=== PATIENT | female | born 1965 | race Caucasian/White ===

== ENCOUNTER 2016-08-16 15:26 | Emergency (ER) | payer OTHER, BC ==
[~2016-08-16 15:26] MED LIST: BISO5TAB5 PO; CALC1TAB30 PO; CETI10TA PO; PERC5TAB6 PO; SIMV20TA2 PO; VITA50003 PO
[2016-08-16] MEDS ORDERED: ADACEL/BOOSTRIX VACCINE (DIPHTH/PERTUSS/ACELL/TETANUS)0.5ML SYR (90715) IM ONE (15:45)
[2016-08-16] MEDS ORDERED: NAPROXEN 250 MG TAB PO ONE (15:45)
[2016-08-16] MEDS ORDERED: MAGN200T PO (15:49)
--- NOTE | 2016-08-16 16:53 | REP ---
Chest x-ray: Two views. History: Chest pain. No comparison views. Findings: The lungs are well inflated and free of infiltrate. There is a small zone of linear fibrosis or discoid atelectasis in the left base. Lung edward are otherwise clear. Pleural angles are sharp. Heart size is normal. Pulmonary vasculature is not increased. No significant bony abnormality is seen. Impression: Linear fibrosis versus discoid atelectasis left base. Otherwise no active disease. Signed by Jaciel Szymanski MD 08/16/2016 05:40 P
[2016-08-16] MEDS ORDERED: NAPR500T PO (17:15)
[2016-08-16] MEDS ORDERED: NORCOTAB PO (17:16)
--- NOTE | 2016-08-16 17:28 | REP ---
LEFT WRIST: REASON: Pain after trauma. Four views of the left wrist show no evidence of an acute fracture or destructive osseous lesion. Calcifications are seen in the region of the triangular fibrocartilage complex possibly secondary to chronic degenerative tear. This should be correlated clinically and if necessary obtain an MRI for further evaluation. RIGHT WRIST, FOUR VIEWS: REASON: Pain after trauma. PRIORS: None. There is lucency seen in the scaphoid consistent with an osseous cyst. Faint calcifications are seen in the region of the triangular fibrocartilage complex possibly secondary to changes due to a degenerative tear. A faint lucency is seen where the pisiform overlaps the triquetral on only one view. This potentially represents a subtle fracture of the pisiform. Since it is seen only one view it can not be stated with certainty. IMPRESSION: Chronic changes and other findings a described above. Consider further evaluation with MRI to search for wrist marrow edema. If a triangular fibrocartilage complex tear is of clinical concern then an MRI would be helpful. Signed by Alvino Benitez DO 08/16/2016 07:17 P
[2016-08-16 18:15] VITALS: BP 173/83
--- NOTE | 2016-08-17 08:51 | ECGEPIP ---
Stationary ECG Study [facility] - ED Test Date: 2016-08-16 Pat Name: DEREK PAREDES Department: Room: - Gender: F Salesperson Neckties: JTarun : 1965 Requested By: Pamela Salas Order Number: [id number] Reading MD: Pamela Salas Measurements Intervals [place] Rate: 80 P: 20 AK: 177 QRS: -5 QRSD: 92 T: 21 QT: 370 QTc: 427 Interpretive Statements SINUS RHYTHM NSTTW ABNORMALITY NO PRIOR FOR COMPARISON Electronically Signed On 08-17-2016 8:51:24 EDT by Pamela Salas
== END 2016-08-16 18:20 | disposition home or self-care (01) ==
LOC: EDBD 15:26 → M ED 17:46
DX: S20.211A Contusion of right front wall of thorax, initial encounter (principal); S20.212A Contusion of left front wall of thorax, initial encounter; V49.49XA Driver injured in collision with other motor vehicles in traffic accident, initial encounter; Y92.410 Unspecified street and highway as the place of occurrence of the external cause; Y93.89 Activity, other specified; Y99.8 Other external cause status; I10 Essential (primary) hypertension; Z79.899 Other long term (current) drug therapy

== ENCOUNTER → 2016-08-20 | Outpatient (CLI) | payer OTHER, BC ==
[~2016-08-20] MED LIST changes: +MAGN200T PO; +NAPR500T PO; +NORCOTAB PO
--- NOTE | 2016-08-20 16:41 | REP ---
Clinical: Pain. Technique: Internal rotation, external rotation, and Y view of the right shoulder. Findings: Mild age-related changes are appreciated. No overt osteoarthritic degenerative changes are identified. No acute fracture or dislocation. Impression: Essentially normal, age-appropriate examination. Signed by Dwight Charles MD 08/20/2016 04:33 P
--- NOTE | 2016-08-20 17:16 | REP ---
CERVICAL SPINE, EIGHT VIEWS: HISTORY: None provided. The cervical spine is visualized from C1 to C7 in the lateral radiographs. There is no acute fracture or subluxation. The C5-6 and C6-7 intervertebral discs are decreased in height consistent with disc degeneration. Osteophytes are present on C4 and C5. The neural foramina are patent. IMPRESSION: Degenerative change as described above. Signed by Ruben Oneill MD 08/21/2016 08:03 A
== END ==
LOC: M RAD 15:45
PROVIDERS: ATTEND Nurse Practitioner Family
DX: M25.511 Pain in right shoulder (principal)

== ENCOUNTER → 2016-09-12 | Outpatient (REF) | payer BC ==
[2016-09-12 12:10] LABS: ALBUMIN 3.8 GM/DL (3.2-5.2); ALBUMIN/GLOBULIN RATIO 1.12 (1.00-1.93); ALKALINE PHOSPHATASE 107 U/L (45-117); ALT/SGPT 23 U/L (12-78); ANION GAP 9 MEQ/L (8-16); AST/SGOT 23 U/L (15-37); BILIRUBIN,TOTAL 0.8 MG/DL (0.2-1.0); BLOOD UREA NITROGEN 15 MG/DL (7-18); CALCIUM LEVEL 9.2 MG/DL (8.5-10.1); CARBON DIOXIDE LEVEL 26 MEQ/L (21-32); CHLORIDE LEVEL 108 MEQ/L (98-107); CHOLESTEROL LEVEL 229 MG/DL (<200); CREATININE FOR GFR 0.76 MG/DL (0.55-1.02); GLOMERULAR FILTRATION RATE > 60.0 (>51); GLUCOSE, FASTING 101 MG/DL (70-105); SODIUM LEVEL 143 MEQ/L (136-145); TOTAL PROTEIN 7.2 GM/DL (6.4-8.2); TRIGLYCERIDES LEVEL 150 MG/DL (<150)
== END ==
LOC: M SFHCCLAY 07:30
PROVIDERS: ATTEND Nurse Practitioner Family
DX: I10 Essential (primary) hypertension (principal); E78.5 Hyperlipidemia, unspecified; E55.9 Vitamin D deficiency, unspecified

== ENCOUNTER → 2016-11-21 | Outpatient (CLI) | payer BC ==
--- NOTE | 2016-11-21 16:15 | REP ---
Right lower extremity deep vein duplex ultrasound: The deep veins of the right lower extremity demonstrate normal compression, normal Doppler color flow and normal Doppler waveforms with respiration and augmentation at multiple levels. There is no ultrasound evidence of deep vein thrombus. There is a 3.5 cm Sorto's cyst in the popliteal fossa. Signed by Garry Álvarez MD 11/21/2016 04:07 P
--- NOTE | 2016-11-22 01:15 | REP ---
Clinical: Swelling. Technique: AP, lateral, bilateral oblique and sunrise views of the right knee. Findings: [place] view demonstrates a lateral subluxation of the patella with overlying and medial soft tissue swelling. Subtle subchondral sclerosis and marginal spurring of the patella are also appreciated suggesting age-related arthritic degenerative changes. Lateral view demonstrates no obvious suprapatellar effusion. No obvious acute fracture identified. Minimal medial tibiofemoral joint space narrowing is also identified on frontal radiographs again consistent with age-related degenerative change. Impression: Age-related arthritic degenerative changes as described above including possible chronic lateral patellar subluxation. Correlation is required. No obvious acute fracture identified. Signed by Dwight Charles MD 11/22/2016 01:07 A
== END ==
LOC: M RAD 15:40
PROVIDERS: ATTEND Nurse Practitioner Family
DX: M79.89 Other specified soft tissue disorders (principal)

== ENCOUNTER → 2016-12-31 | Outpatient (RCR) | payer BC ==
[~2016-12-31] MED LIST changes: +PERC5TAB12 PO; -PERC5TAB6 PO; +VITA1CAP40 PO; -VITA50003 PO
== END ==
LOC: M PT 12-12 09:56
PROVIDERS: ATTEND Orthopaedic Surgery
DX: Z51.89 Encounter for other specified aftercare (principal); M22.2X1 Patellofemoral disorders, right knee; M17.11 Unilateral primary osteoarthritis, right knee

== ENCOUNTER 2017-01-07 10:09 | Outpatient (RCR) | payer BC | END 2017-01-31 | disposition home or self-care (01) | LOC: M PT 10:09 | PROVIDERS: ATTEND Orthopaedic Surgery | DX: Z51.89 Encounter for other specified aftercare (principal); M17.11 Unilateral primary osteoarthritis, right knee ==

== ENCOUNTER → 2017-12-11 | Outpatient (REF) | payer BC | LOC: M SFHCPLAZ 09:10 | DX: R19.5 Other fecal abnormalities (principal); R19.7 Diarrhea, unspecified ==

== ENCOUNTER → 2017-12-12 | Outpatient (REF) | payer BC ==
[2017-12-12 09:30] LABS: BASO % 0.6 % (0.0-1.0); EOS # 0.3 10^3/uL (0.0-0.50); EOS % 3.9 % (0.0-3.0); IMMATURE GRANULOCYTE % 0.2 % (0-3.0); LYMPH # 2.1 10^3/uL (1.5-4.5); LYMPH % 33.2 % (24.0-44.0); MEAN CORPUSCULAR HEMOGLOBIN 28.9 pg (27.0-33.0); MEAN CORPUSCULAR HGB CONC 32.5 g/dl (32.0-36.5); MEAN CORPUSCULAR VOLUME 88.9 fl (80.0-96.0); MONO # 0.5 10^3/uL (0.0-0.8); MONO % 7.5 % (0.0-5.0); NEUTROPHILS # 3.5 10^3/uL (1.8-7.7); NEUTROPHILS % 54.6 % (36.0-66.0); PLATELET COUNT, AUTOMATED 242 10^3/uL (150-450); RED CELL DISTRIBUTION WIDTH 13.2 % (11.5-14.5); WHITE BLOOD COUNT 6.4 10^3/uL (4.0-10.0)
[2017-12-12 10:05] LABS: ALBUMIN 3.7 GM/DL (3.2-5.2); ALBUMIN/GLOBULIN RATIO 1.09 (1.00-1.93); ALKALINE PHOSPHATASE 122 U/L (45-117); ALT/SGPT 27 U/L (12-78); ANION GAP 10 MEQ/L (8-16); AST/SGOT 19 U/L (7-37); BILIRUBIN,TOTAL 0.8 MG/DL (0.2-1.0); BLOOD UREA NITROGEN 14 MG/DL (7-18); CALCIUM LEVEL 8.9 MG/DL (8.5-10.1); CARBON DIOXIDE LEVEL 28 MEQ/L (21-32); CHLORIDE LEVEL 107 MEQ/L (98-107); FREE T4 0.96 NG/DL (0.76-1.46); GLOMERULAR FILTRATION RATE > 60.0 (>51); GLUCOSE, FASTING 95 MG/DL (70-100); POTASSIUM SERUM 3.6 MEQ/L (3.5-5.1); SODIUM LEVEL 145 MEQ/L (136-145); TOTAL PROTEIN 7.1 GM/DL (6.4-8.2)
== END ==
LOC: M SFHCPLAZ 09:08
DX: R19.5 Other fecal abnormalities (principal); R19.7 Diarrhea, unspecified

== ENCOUNTER → 2017-12-27 | Outpatient (REF) | payer BC ==
[2017-12-27 13:25] LABS: ANION GAP 8 MEQ/L (8-16); BLOOD UREA NITROGEN 13 MG/DL (7-18); CALCIUM LEVEL 9.1 MG/DL (8.5-10.1); CARBON DIOXIDE LEVEL 29 MEQ/L (21-32); CHLORIDE LEVEL 107 MEQ/L (98-107); CREATININE FOR GFR 0.76 MG/DL (0.55-1.30); GLOMERULAR FILTRATION RATE > 60.0 (>51); GLUCOSE, FASTING 88 MG/DL (70-100); POTASSIUM SERUM 3.8 MEQ/L (3.5-5.1); SODIUM LEVEL 144 MEQ/L (136-145)
== END ==
LOC: M SFHCPLAZ 09:21
DX: I10 Essential (primary) hypertension (principal)
CPT/HCPCS: 80048

== ENCOUNTER → 2018-01-08 | Outpatient (CLI) | payer BC | LOC: M RAD 16:31 | DX: R07.89 Other chest pain (principal) | CPT/HCPCS: 71046 ==

== ENCOUNTER 2018-02-09 17:02 | Emergency (ER) | payer BC | END 2018-02-09 18:08 | disposition home or self-care (01) | LOC: M ED 17:02 | DX: S93.401A Sprain of unspecified ligament of right ankle, initial encounter (principal); X58.XXXA Exposure to other specified factors, initial encounter; Y92.098 Other place in other non-institutional residence as the place of occurrence of the external cause; Y93.02 Activity, running; I10 Essential (primary) hypertension; Z88.8 Allergy status to other drugs, medicaments and biological substances; Z79.899 Other long term (current) drug therapy | CPT/HCPCS: 73610 ==

== ENCOUNTER → 2018-02-11 | Outpatient (CLI) | payer BC ==
[2018-02-11 14:20] LABS: C REACTIVE PROTEIN QUANTITATIV 2.42 MG/DL (0.00-0.30)
[2018-02-11 15:32] LABS: ERYTHROCYTE SEDIMENTATION RATE 40 mm/hr (0-30)
[2018-02-11 18:38] LABS: URIC ACID 4.3 MG/DL (2.6-6.0)
== END ==
LOC: M SMT 11:44
DX: S93.401A Sprain of unspecified ligament of right ankle, initial encounter (principal); Y92.89 Other specified places as the place of occurrence of the external cause; Y93.89 Activity, other specified; Y99.8 Other external cause status; X58.XXXA Exposure to other specified factors, initial encounter
CPT/HCPCS: 84550

== ENCOUNTER → 2018-04-09 | Outpatient (REF) | payer BC ==
[2018-04-09 18:06] LABS: ANION GAP 6 MEQ/L (8-16); BLOOD UREA NITROGEN 15 MG/DL (7-18); CALCIUM LEVEL 9.4 MG/DL (8.5-10.1); CARBON DIOXIDE LEVEL 29 MEQ/L (21-32); CHLORIDE LEVEL 106 MEQ/L (98-107); CREATININE FOR GFR 0.98 MG/DL (0.55-1.30); GLOMERULAR FILTRATION RATE > 60.0 (>51); GLUCOSE, FASTING 86 MG/DL (70-100); POTASSIUM SERUM 3.6 MEQ/L (3.5-5.1); SODIUM LEVEL 141 MEQ/L (136-145)
== END ==
LOC: M SFHCPLAZ 15:19
DX: I10 Essential (primary) hypertension (principal)

== ENCOUNTER 2018-06-22 15:40 | Emergency (ER) | payer BC ==
[~2018-06-22] VITALS: Ht 160 cm; Wt 95.5 kg
[~2018-06-22 15:40] MED LIST changes: +HYDR25TAB PO; +IBUP-1022 PO; +NAPR-50 PO; -NAPR500T PO; -VITA1CAP40 PO; +VITA50005 PO
[2018-06-22 15:50] VITALS: BP 167/85
[2018-06-22] MEDS ORDERED: MORPHINE 4 MG/ML 1ML VIAL/SYRINGE (J2270) IV ONE (16:00)
[2018-06-22] MEDS ORDERED: hydroCHLOROthiazide 25 MG TAB PO ONE (16:00)
[2018-06-22 16:10] LABS: BASO % 0.4 % (0.0-1.0); EOS # 0.1 10^3/uL (0.0-0.50); EOS % 1.3 % (0.0-3.0); HEMATOCRIT 42.8 % (36.0-47.0); HEMOGLOBIN 13.8 g/dl (12.0-15.5); LYMPH # 3.1 10^3/uL (1.5-4.5); LYMPH % 29.6 % (24.0-44.0); MEAN CORPUSCULAR HEMOGLOBIN 27.5 pg (27.0-33.0); MEAN CORPUSCULAR HGB CONC 32.2 g/dl (32.0-36.5); MEAN CORPUSCULAR VOLUME 85.4 fl (80.0-96.0); MONO # 0.9 10^3/uL (0.0-0.8); MONO % 8.7 % (0.0-5.0); NEUTROPHILS # 6.2 10^3/uL (1.8-7.7); NEUTROPHILS % 59.6 % (36.0-66.0); PLATELET COUNT, AUTOMATED 248 10^3/uL (150-450); RED BLOOD COUNT 5.01 10^6/uL (4.00-5.40); WHITE BLOOD COUNT 10.5 10^3/uL (4.0-10.0)
[2018-06-22] MEDS ORDERED: ASPIRIN 325 MG TAB PO ONE (16:15)
[2018-06-22 16:25] LABS: INR 0.94; PROTHROMBIN TIME 12.7 SECONDS (12.1-14.4)
[2018-06-22 16:26] LABS: PARTIAL THROMBOPLASTIN TIME 27.1 SECONDS (25.4-37.6)
[2018-06-22 16:45] LABS: ALBUMIN 4.1 GM/DL (3.2-5.2); ALT/SGPT 26 U/L (12-78); BILIRUBIN,DIRECT 0.2 MG/DL (0.0-0.2); BLOOD UREA NITROGEN 11 MG/DL (7-18); CALCIUM LEVEL 9.1 MG/DL (8.5-10.1); CARBON DIOXIDE LEVEL 26 MEQ/L (21-32); CHLORIDE LEVEL 105 MEQ/L (98-107); CK-MB VALUE MASS < 1.0 NG/ML (<3.6); CPK CREATINE PHOSPHOKINASE 74 U/L (26-192); CREATININE FOR GFR 0.82 MG/DL (0.55-1.30); FREE T4 1.01 NG/DL (0.76-1.46); GLOMERULAR FILTRATION RATE > 60.0 (>51); GLUCOSE, FASTING 80 MG/DL (70-100); LIPASE 153 U/L (73-393); MB/CK RELATIVE INDEX 1.35 (< OR =4); POTASSIUM SERUM 3.2 MEQ/L (3.5-5.1); SODIUM LEVEL 141 MEQ/L (136-145); TOTAL PROTEIN 7.9 GM/DL (6.4-8.2); TROPONIN I < 0.02 NG/ML (< 0.10)
[2018-06-22] MEDS ORDERED: ISOVUE-370 76% 100ML VIAL (Q9967) As Ordered ONE (16:54)
[2018-06-22] MEDS ORDERED: POTASSIUM CHLORIDE 10 MEQ SR TABLET PO ONE (17:00)
[2018-06-22] MEDS ORDERED: KETOROLAC 30 MG/ML VIAL (J1885) IV ONE (17:15)
--- NOTE | 2018-06-22 19:01 | ECGEPIP ---
Stationary ECG Study [facility] - ED Test Date: 2018-06-22 Pat Name: DEREK PAREDES Department: Room: - Gender: F It Applications Analyst: : 1965 Requested By: Artur Connelly Order Number: [id number] Reading MD: Artur Connelly Measurements Intervals [place] Rate: 75 P: 28 IN: 166 QRS: -24 QRSD: 94 T: 16 QT: 390 QTc: 437 Interpretive Statements SINUS RHYTHM BORDERLINE LEFT AXIS DEVIATION NONSPECIFIC ST T WAVE CHANGES DELAYED R WAVE PROGRESSION' CW 08/16/16 RATE DECREASED SIMILMIAR MORPHOLOGY Electronically Signed On 06-22-2018 19:01:09 EST by Artur Connelly
--- NOTE | 2018-06-23 08:02 | REP ---
AP PORTABLE CHEST: 06/22/2018. COMPARISON: 01/08/2018. CLINICAL HISTORY: Chest pain. FINDINGS: The lung edward are adequately inflated. There is no pleural effusion, dense consolidation or mass. No pneumothorax or pneumomediastinum. There is some linear fibrotic or atelectatic change along the left and right CP angle. Epicardial fat pad also noted along the left heart border and diaphragm. No pulmonary nodule evident. No lateral pleural thickening or apical scarring. Heart size not enlarged. Aorta and airway intact bony thorax shows no acute compression deformity without focal lesion. IMPRESSION: 1. Some bilateral CP angle linear fibrotic or atelectatic change without cardiomegaly, edema or effusion. No dense consolidation. 2. Aorta and airway intact. Bones without acute finding. No pneumothorax or pneumomediastinum. Electronically Signed by Soren Esteban MD 06/23/2018 01:04 P
--- NOTE | 2018-06-23 09:09 | REP ---
CT ANGIOGRAM CHEST: 06/22/2018. CLINICAL HISTORY: Right sided pleuritic chest pain. COMPARISON: AP portable chest 06/22/2018, Chest x-ray 01/08/2018. TECHNIQUE: Bolus of 100 mL Isovue 370, scanning through the chest with our pulmonary angiogram protocol and both coronal and sagittal standard and MIP reformats. FINDINGS: Lung edward show some linear atelectatic changes in the bases as noted on chest x-ray. There are a few scattered calcified granulomas lung nodules. There is no pleural effusion, dense consolidation, noncalcified pulmonary nodule or parenchymal mass. I see no pleural thickening, calcified pleural plaque, apical scar or pneumothorax. There is no pneumomediastinum or bronchiectasis. Heart size not grossly enlarged. There is no pericardial thickening or effusion. There is a small hiatal hernia suggested. The aorta is without aneurysm or dissection. The main, right and left pulmonary arteries in the mediastinum are without filling defects to suggest embolus. The lobar, segmental and subsegmental pulmonary arteries are without filling defect or vessel cutoff. There is no pathologic sized mediastinal, hilar, axillary or supraclavicular adenopathy/mass. The sternum, manubrium, clavicles, AC joints, glenohumeral joints and the visualized scapulae and ribs are all grossly unremarkable and without acute fracture. The thoracic spine shows no compression deformity or destructive lesion. In the upper abdomen there appears to be enlargement of the liver although it is only seen in part and fatty infiltration is also suspected. No splenomegaly or focal splenic lesion. No ascites in the upper abdomen. Adrenal glands normal. Upper poles of kidneys intact. That portion of the gallbladder and pancreas are unremarkable. IMPRESSION: 1. There is no CT evidence of pulmonary thromboembolism, lateral pleural thickening, calcified pleural plaque or pleural-based mass. 2. No aortic aneurysm or dissection. 3. No CT evidence of pulmonary thromboembolism. 4. No pathologic sized mediastinal, hilar, axillary or supraclavicular adenopathy. 5. Small hiatal hernia. Adrenal glands, upper poles of kidneys and spleen unremarkable. Liver is probably enlarged and with fatty infiltration but it is incompletely seen. Electronically Signed by Soren Esteban MD 06/23/2018 01:08 P
== END 2018-06-22 18:17 | disposition home or self-care (01) ==
LOC: M ED 15:40
DX: R07.89 Other chest pain (principal); I10 Essential (primary) hypertension; E78.5 Hyperlipidemia, unspecified; E55.9 Vitamin D deficiency, unspecified; E66.9 Obesity, unspecified; Z79.899 Other long term (current) drug therapy; Z88.8 Allergy status to other drugs, medicaments and biological substances
CPT/HCPCS: 71045; 71275; 80048; 80076; 82550; 82553; 83690; 84439; 84443; 84484; 85025; 85610; 85730; 93005; 93041; 94760; 96374; 99284; J1885; Q9967

== ENCOUNTER → 2018-06-25 | Outpatient (CLI) | payer BC ==
--- NOTE | 2018-06-25 21:45 | REP ---
Clinical: Neck pain. Technique: AP, lateral, flexion/extension, bilateral oblique, and open-mouth views of the cervical spine. Comparison: 08/20/2016. Findings: Alignment is maintained and there is no evidence for acute fracture / compression injury or subluxation. Moderate osteophyte formation with endplate sclerosis and disc space narrowing noted at the C5-6 level along with mild endplate sclerosis and minimal disc space narrowing at C6-7. Findings are relatively similar prior examination. Remainder examination appears normal. C1-C2 articulation and odontoid process are normal. Neural foramen are patent. Impression: Moderate relatively stable degenerative spondylosis at C5-6 and C6-7. Electronically Signed by Dwight Charles MD 06/25/2018 09:37 P
== END ==
LOC: M RAD 12:44
PROVIDERS: ATTEND Nurse Practitioner Family
DX: M54.2 Cervicalgia (principal)

== ENCOUNTER → 2018-06-25 | Outpatient (REF) | payer BC | LOC: M SFHCPLAZ 11:50 | PROVIDERS: ATTEND Nurse Practitioner Family | DX: E87.6 Hypokalemia (principal) ==

== ENCOUNTER → 2018-06-30 | Outpatient (REF) | payer BC ==
[2018-06-30 12:36] LABS: BLOOD UREA NITROGEN 14 MG/DL (7-18); CALCIUM LEVEL 8.7 MG/DL (8.5-10.1); CARBON DIOXIDE LEVEL 26 MEQ/L (21-32); CHLORIDE LEVEL 109 MEQ/L (98-107); CHOLESTEROL LEVEL 240 MG/DL (<200); CHOLESTEROL RISK RATIO 6.315 (<5); CREATININE FOR GFR 0.64 MG/DL (0.55-1.30); GLOMERULAR FILTRATION RATE > 60.0 (>51); GLUCOSE, FASTING 93 MG/DL (70-100); HDL CHOLESTEROL 38 MG/DL (>40); LDL CHOLESTEROL 167 MG/DL (<100); NON-HDL-C 202 MG/DL; POTASSIUM SERUM 4.3 MEQ/L (3.5-5.1); SODIUM LEVEL 144 MEQ/L (136-145); TRIGLYCERIDES LEVEL 177 MG/DL (<150)
== END ==
LOC: M SFHCPLAZ 08:00
PROVIDERS: ATTEND Nurse Practitioner Family
DX: E87.6 Hypokalemia (principal); E78.5 Hyperlipidemia, unspecified

== ENCOUNTER → 2018-11-10 | Outpatient (CLI) | payer BC ==
[~2018-11-10] MED LIST changes: +HYDR-3715 PO; -NAPR-50 PO; +NAPR-837 PO; -NORCOTAB PO
--- NOTE | 2018-11-10 12:37 | REPMRS ---
Patient History The patient states she has not had a clinical breast exam in over a year. Family history of unknown cancer in brother. Digital Mammo Screening Bilat: November 10, 2018 - Exam #: [id number] Bilateral CC and MLO view(s) were taken. Technologist: Ary Carvalho, Technologist Prior study comparison: April 06, 2016, [facility] March 11, 2015, bilateral [facility]. March 30, 2013, digital woman screen mammo, performed at [facility]. FINDINGS: The breast tissue is heterogeneously dense. This may lower the sensitivity of mammography. There is a moderate amount of heterogeneously dense fibroglandular tissue which is fairly symmetric. There is no interval development of dominant mass, architectural distortion, or clustered microcalcification typical of malignancy. There has been no change in the appearance of the mammogram from the prior studies. 3-D tomosynthesis shows no additional findings. Assessment: BI-RADS/ACR category 1 mammogram. Negative Mammogram. Recommendation Routine screening mammogram of both breasts in 1 year (for women over age 40). This patient's Lifetime Breast Cancer RIsk is estimated at 8.1 %. This mammogram was interpreted with the aid of an FDA-approved computer-aided dectection system. Electronically Signed By: Nikos Szymanski MD 11/10/18 [id number]
== END ==
LOC: M RAD 10:02
PROVIDERS: ATTEND Nurse Practitioner Family
DX: Z12.31 Encounter for screening mammogram for malignant neoplasm of breast (principal); Z80.9 Family history of malignant neoplasm, unspecified

== ENCOUNTER → 2019-02-24 | Outpatient (REF) | payer BC ==
[~2019-02-24] MED LIST changes: -BISO5TAB5 PO; +BISO5TAB9 PO
[2019-02-24 10:09] LABS: C REACTIVE PROTEIN QUANTITATIV 0.79 MG/DL (0.00-0.30); FREE T4 0.93 NG/DL (0.76-1.46); RHEUMATOID FACTOR QUANT < 10.0 IU/ML (<15.0)
[2019-02-24 10:11] LABS: VITAMIN B12 LEVEL 529 PG/ML (247-911)
[2019-02-26 08:06] LABS: ANTINUCLEAR ANTIBODIES DIRECT Negative (Negative); CYCLIC CITRULLINATED PEPTIDE 6 units (0-19)
== END ==
LOC: M SFHCPLAZ 07:50
PROVIDERS: ATTEND Nurse Practitioner Family
DX: M25.50 Pain in unspecified joint (principal); R20.2 Paresthesia of skin

== ENCOUNTER → 2019-03-06 | Outpatient (CLI) | payer BC ==
--- NOTE | 2019-03-06 18:30 | REP ---
MRI cervical spine without contrast: History: Neck pain. Left hand paresthesias. Comparison radiographs June 25, 2018. No comparison MR study. Technique: Sagittal and axial T1 and T2-weighted scans are acquired in the usual fashion with and without fat saturation. Sequences include spin echo, turbo spin-echo, and STIR imaging sequences. MRI findings: There is straightening and some reversal of the normal cervical lordosis. Vertebral body heights are preserved. Alignment is otherwise normal. Cortical and medullary bone signal intensity are normal. There is no extra spinal abnormality appreciated. At the C2-3 disc level there is minimal central disc bulging. No other finding. At C3-4, there is minimal central disc bulging. The C4-5 level shows a small central disc protrusion extending caudally for 2-3 mm. This indents the ventral subarachnoid space. There is subtle flattening of the ventral margin of the cord. No central canal stenosis is seen. No foraminal narrowing is seen. At C5-6, there is a right posterior focal disc protrusion flattening the right ventral margin of the cord and contacting the adjacent right sided root. There is uncovertebral spurring on the right producing mild foraminal narrowing. No central canal stenosis is noted. At C6-C7, there is no evidence of disc protrusion or central canal stenosis. The C7-T1 level shows no abnormality. Impression: Small central disc protrusion is C4-5 and right posterior disc protrusion C5-6 with right-sided uncovertebral spurring and neural foraminal narrowing. No definite left-sided neural foraminal encroachment seen. Electronically Signed by Jaciel Szymanski MD 03/09/2019 11:23 A
== END ==
LOC: M PLARAD 14:03
PROVIDERS: ATTEND Nurse Practitioner Family
DX: M54.2 Cervicalgia (principal); R20.2 Paresthesia of skin

== ENCOUNTER → 2019-03-16 | Outpatient (CLI) | payer BC ==
--- NOTE | 2019-03-17 05:36 | REP ---
Clinical: Mid/lower back pain . Technique: AP, lateral, bilateral oblique, and coned-down views. Findings: Alignment and lordosis is maintained. The vertebral bodies including transverse process and spinous processes are intact and normal. There is no evidence for acute fracture / compression injury or subluxation. No evidence for spondylolysis or spondylolisthesis. No significant degenerative change is noted. Impression: Normal age-appropriate lumbosacral spine radiograph series. If the patient remains symptomatic consider MRI for further investigation. Electronically Signed by Dwight Charles MD 03/17/2019 05:28 A
== END ==
LOC: M RAD 17:13
PROVIDERS: ATTEND Nurse Practitioner Family
DX: M54.5 Low back pain (principal)

== ENCOUNTER → 2019-03-21 | Outpatient (CLI) | payer BC ==
[2019-03-21 11:56] LABS: BASO # 0.1 10^3/uL (0.0-0.2); EOS # 0.2 10^3/uL (0.0-0.5); EOS % 3.3 % (0.0-3.0); HEMATOCRIT 42.7 % (36.0-47.0); HEMOGLOBIN 13.9 g/dl (12.0-15.5); LYMPH # 2.1 10^3/uL (1.5-5.0); LYMPH % 33.5 % (24.0-44.0); MEAN CORPUSCULAR HEMOGLOBIN 28.8 pg (27.0-33.0); MEAN CORPUSCULAR HGB CONC 32.6 g/dl (32.0-36.5); MEAN CORPUSCULAR VOLUME 88.6 fl (80.0-96.0); MONO # 0.4 10^3/uL (0.0-0.8); NEUTROPHILS # 3.4 10^3/uL (1.5-8.5); PLATELET COUNT, AUTOMATED 225 10^3/uL (150-450); RED BLOOD COUNT 4.82 10^6/uL (4.00-5.40); WHITE BLOOD COUNT 6.1 10^3/uL (4.0-10.0)
[2019-03-21 12:47] LABS: ALBUMIN 3.8 GM/DL (3.2-5.2); ALT/SGPT 46 U/L (12-78); BILIRUBIN,TOTAL 0.9 MG/DL (0.2-1.0); BLOOD UREA NITROGEN 13 MG/DL (7-18); CALCIUM LEVEL 8.6 MG/DL (8.5-10.1); CARBON DIOXIDE LEVEL 27 MEQ/L (21-32); CHLORIDE LEVEL 108 MEQ/L (98-107); CREATININE FOR GFR 0.94 MG/DL (0.55-1.30); GLOMERULAR FILTRATION RATE > 60.0 (>51); GLUCOSE, FASTING 112 MG/DL (70-100); POTASSIUM SERUM 3.6 MEQ/L (3.5-5.1); SODIUM LEVEL 141 MEQ/L (136-145); TOTAL PROTEIN 7.1 GM/DL (6.4-8.2)
[2019-03-23 10:21] LABS: VITAMIN B12 LEVEL 496 PG/ML
[2019-03-23 10:22] LABS: FOLATE 23.8 NG/ML
[2019-03-24 10:12] LABS: DRVV SCREEN 37.7 SEC; PTT LUPUS TYPE ANTICOAG SCREEN 0.9 (0-1.2)
== END ==
LOC: M LAB 10:48
PROVIDERS: ATTEND Psychiatry & Neurology Neurology
DX: G90.09 Other idiopathic peripheral autonomic neuropathy (principal)

== ENCOUNTER → 2019-04-07 | Outpatient (CLI) | payer BC ==
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
== END ==
LOC: M PAIN 09:30
PROVIDERS: ATTEND Anesthesiology
DX: M50.10 Cervical disc disorder with radiculopathy, unspecified cervical region (principal); G89.29 Other chronic pain; I10 Essential (primary) hypertension; E78.5 Hyperlipidemia, unspecified; Z88.8 Allergy status to other drugs, medicaments and biological substances; Z79.899 Other long term (current) drug therapy

== ENCOUNTER → 2019-05-12 | Outpatient (CLI) | payer BC ==
[~2019-05-12] MED LIST changes: -SIMV20TA2 PO; +SIMV20TA22 PO
--- NOTE | 2019-05-12 19:54 | REP ---
MRI lumbar spine: 05/12/2019. Indication: Low back pain. Comparison: None. Technique: Multiplanar short and long TR sequences of the lumbar spine were obtained without IV Gadolinium. Findings: Lumbar vertebral body alignment is anatomic. No worrisome marrow or cord signal is present. Disc dessication is present throughout with the exception of L5/S1 most pronounced at L4/L5. No significant paraspinal soft tissue abnormalities are present. L1/L2, L2/L3 and L3/L4: There is no focal disc herniation or significant spinal canal / neural foraminal narrowing. L4/L5: Mild bilateral facet arthrosis is present without significant spinal canal or neural foraminal narrowing. L5/S1: Unremarkable. Impression: No focal disc herniation or significant spinal canal / neural foraminal narrowing. No nerve root impingement. Electronically Signed by Robert Girard DO 05/12/2019 07:46 P
== END ==
LOC: M RAD 18:11
PROVIDERS: ATTEND Nurse Practitioner Adult Health
DX: M54.5 Low back pain (principal)

== ENCOUNTER 2019-05-20 17:15 | Emergency (ER) | payer BC ==
[~2019-05-20] VITALS: Ht 160 cm; Wt 100.4 kg
[2019-05-20] MEDS ORDERED: AMLO5TAB6 (17:30)
[2019-05-20] MEDS ORDERED: MAGN400C PO (17:30)
[2019-05-20] MEDS ORDERED: VITA50005 (17:31)
[2019-05-20] MEDS ORDERED: KETOROLAC 30 MG/ML VIAL (J1885) IV ONE (17:45)
--- NOTE | 2019-05-20 17:45 | ECGEPIP ---
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
[2019-05-20 17:46] LABS: BASO % 0.4 % (0.0-1.0); EOS # 0.2 10^3/uL (0.0-0.5); EOS % 1.9 % (0.0-3.0); HEMATOCRIT 44.9 % (36.0-47.0); HEMOGLOBIN 14.4 g/dl (12.0-15.5); LYMPH # 2.8 10^3/uL (1.5-5.0); LYMPH % 30.6 % (24.0-44.0); MEAN CORPUSCULAR HEMOGLOBIN 28.1 pg (27.0-33.0); MEAN CORPUSCULAR HGB CONC 32.1 g/dl (32.0-36.5); MEAN CORPUSCULAR VOLUME 87.5 fl (80.0-96.0); MONO # 0.9 10^3/uL (0.0-0.8); MONO % 9.2 % (0.0-5.0); NEUTROPHILS # 5.3 10^3/uL (1.5-8.5); NEUTROPHILS % 57.7 % (36.0-66.0); PLATELET COUNT, AUTOMATED 274 10^3/uL (150-450); RED BLOOD COUNT 5.13 10^6/uL (4.00-5.40); WHITE BLOOD COUNT 9.3 10^3/uL (4.0-10.0)
[2019-05-20 18:10] LABS: ERYTHROCYTE SEDIMENTATION RATE 19 mm/hr (0-30)
[2019-05-20 18:30] LABS: BLOOD UREA NITROGEN 13 MG/DL (7-18); CALCIUM LEVEL 9.7 MG/DL (8.5-10.1); CARBON DIOXIDE LEVEL 27 MEQ/L (21-32); CHLORIDE LEVEL 106 MEQ/L (98-107); CK-MB VALUE MASS < 1.0 NG/ML (<3.6); CPK CREATINE PHOSPHOKINASE 92 U/L (26-192); CREATININE FOR GFR 0.78 MG/DL (0.55-1.30); GLOMERULAR FILTRATION RATE > 60.0 (>51); GLUCOSE, FASTING 89 MG/DL (70-100); MB/CK RELATIVE INDEX 1.09 (< OR =4); POTASSIUM SERUM 3.7 MEQ/L (3.5-5.1); SODIUM LEVEL 141 MEQ/L (136-145); TROPONIN I < 0.02 NG/ML (< 0.10)
[2019-05-20] MEDS ORDERED: PERCOCET 5MG/325MG TAB PO ONE (18:45)
[2019-05-20] MEDS ORDERED: ISOVUE-370 76% 100ML VIAL (Q9967) As Ordered ONE (18:51)
--- NOTE | 2019-05-20 20:13 | REPVR ---
PROCEDURE INFORMATION: Exam: CT Angiography Chest With Contrast Exam date and time: 05/20/2019 7:27 PM Age: 54 years old Clinical indication: Chest pain; Additional info: Cp TECHNIQUE: Imaging protocol: Computed tomographic angiography of the chest with intravenous contrast. 3D rendering: MIP and/or 3D reconstructed images were created by the technologist. Radiation optimization: All CT scans at this facility use at least one of these dose optimization techniques: automated exposure control; mA and/or kV adjustment per patient size (includes targeted exams where dose is matched to clinical indication); or iterative reconstruction. Contrast material: ISOVUE 370; Contrast volume: 75 ml; Contrast route: IV; COMPARISON: CT ANGIO CHEST 06/22/2018 4:52 PM FINDINGS: Pulmonary arteries: No evidence of pulmonary emboli. In Aorta: No evidence of thoracic aortic aneurysm or dissection. Lungs: There is minor dependent atelectasis. There is no consolidation. There is a calcified granuloma present in the right lower lobe. There are calcified granulomata in the right upper lobe. Pleural space: Unremarkable. No pneumothorax. No pleural effusion. Heart: Unremarkable. No cardiomegaly. No pericardial effusion. Mediastinum: There is a small hiatal hernia. The esophagus is mildly dilated and contains gas, which may indicate reflux. Liver: There is diffuse hepatic steatosis. Lymph nodes: Unremarkable. No enlarged lymph nodes. Bones/joints: There are degenerative changes of the thoracic spine. No fracture. Soft tissues: Unremarkable. IMPRESSION: 1. No pulmonary emboli. 2. No thoracic aortic aneurysm or dissection. 3. Small hiatal hernia. The gas in the esophagus may indicate reflux. 4. Old granulomatous disease. No acute disease. Electronically signed by: Josef Bhatia On 05/20/2019 20:13:14 PM
--- NOTE | 2019-05-20 20:22 | REP ---
CHEST, TWO VIEWS: Two views of the chest are performed. Comparison 06/22/2018 as well as other prior exams. There is mild bibasilar fibrotic change without evidence of acute infiltrate or pulmonary edema. The heart is normal in size and the mediastinal silhouette is unremarkable and unchanged. IMPRESSION: No acute infiltrate. Electronically Signed by Garry Ruiz MD 05/21/2019 08:47 A
[2019-05-20 20:58] VITALS: BP 154/82
== END 2019-05-20 21:04 | disposition home or self-care (01) ==
LOC: M ED 17:15
DX: I10 Essential (primary) hypertension (principal); E78.5 Hyperlipidemia, unspecified; G89.29 Other chronic pain; Z82.49 Family history of ischemic heart disease and other diseases of the circulatory system; Z79.899 Other long term (current) drug therapy; Z88.8 Allergy status to other drugs, medicaments and biological substances
CPT/HCPCS: 71046; 71275; 80048; 82550; 82553; 84484; 85025; 85652; 93005; 93041; 94760; 96374; 99285; J1885; Q9967

== ENCOUNTER 2019-07-01 16:45 | Outpatient (RCR) | payer BC ==
[~2019-07-01 16:45] MED LIST changes: +AMLO5TAB6; +BISO5TAB14 PO; -BISO5TAB9 PO; +MAGN400C PO; +VITA50005
== END 2019-07-03 ==
LOC: M PT 16:45
PROVIDERS: ATTEND Psychiatry & Neurology Neurology
DX: Z51.89 Encounter for other specified aftercare (principal); M47.22 Other spondylosis with radiculopathy, cervical region; M25.531 Pain in right wrist; M25.532 Pain in left wrist

== ENCOUNTER 2019-07-15 17:01 | Outpatient (RCR) | payer BC | END 2019-08-01 | LOC: M PT 17:01 | PROVIDERS: ATTEND Psychiatry & Neurology Neurology | DX: M47.22 Other spondylosis with radiculopathy, cervical region (principal) ==

== ENCOUNTER → 2019-08-31 | Outpatient (REF) | payer BC ==
[2019-09-01 10:38] LABS: APPEARANCE, URINE CLEAR (CLEAR); BACTERIA, URINE AUTO 1+ (NEGATIVE); BILIRUBIN, URINE AUTO NEGATIVE (NEGATIVE); BLOOD, URINE BLOOD 1+ (NEGATIVE); COLOR, URINE YELLOW (YELLOW); GLUCOSE, URINE (UA) AUTO NEGATIVE (NEGATIVE); KETONE, URINE AUTO NEGATIVE (NEGATIVE); LEUKOCYTE ESTERASE, URINE AUTO 3+ (NEGATIVE); MUCUS, URINE SMALL (NEGATIVE); NITRITE, URINE AUTO NEGATIVE (NEGATIVE); PROTEIN, URINE AUTO NEGATIVE (NEGATIVE); RBC, URINE AUTO 8 /HPF (0-3); SPECIFIC GRAVITY URINE AUTO 1.008 (1.002-1.035); SQUAMOUS EPITHELIAL CELL UR AU 2 /HPF (0-6); UROBILINOGEN, URINE AUTO 0.2 mg/dL (0.0-2.0); WBC, URINE AUTO 19 /HPF (0-3)
== END ==
LOC: M SFHCPLAZ 09:54
PROVIDERS: ATTEND Internal Medicine
DX: R10.30 Lower abdominal pain, unspecified (principal)

== ENCOUNTER → 2020-07-18 | Outpatient (CLI) | payer BC ==
[~2020-07-18] MED LIST changes: +AMLO1TAB24; -AMLO5TAB6; +HYDR-3490 PO; -HYDR25TAB PO
[2020-07-18 08:38] LABS: ALBUMIN 4.1 GM/DL (3.2-5.2); ALT/SGPT 86 U/L (12-78); BLOOD UREA NITROGEN 14 MG/DL (7-18); CALCIUM LEVEL 9.3 MG/DL (8.5-10.1); CARBON DIOXIDE LEVEL 30 MEQ/L (21-32); CHLORIDE LEVEL 105 MEQ/L (98-107); CHOLESTEROL LEVEL 265 MG/DL (<200); CHOLESTEROL RISK RATIO 6.309 (<5); CREATININE FOR GFR 0.87 MG/DL (0.55-1.30); FREE T4 0.98 NG/DL (0.76-1.46); GLOMERULAR FILTRATION RATE > 60.0 (>51); GLUCOSE, FASTING 105 MG/DL (70-100); HDL CHOLESTEROL 42 MG/DL (>40); LDL CHOLESTEROL 193 MG/DL (<100); NON-HDL-C 223 MG/DL; POTASSIUM SERUM 3.6 MEQ/L (3.5-5.1); SODIUM LEVEL 141 MEQ/L (136-145); TOTAL PROTEIN 7.7 GM/DL (6.4-8.2); TRIGLYCERIDES LEVEL 151 MG/DL (<150)
[2020-07-18 10:28] LABS: TOTAL 25(OH) VITAMIN D 22.6 NG/ML (30.0-100.0)
== END ==
LOC: M LAB 07:39
PROVIDERS: ATTEND Nurse Practitioner Adult Health
DX: E55.9 Vitamin D deficiency, unspecified (principal); Z83.49 Family history of other endocrine, nutritional and metabolic diseases; I10 Essential (primary) hypertension; E78.5 Hyperlipidemia, unspecified; K76.0 Fatty (change of) liver, not elsewhere classified

== ENCOUNTER → 2020-08-30 | Outpatient (CLI) | payer BC ==
--- NOTE | 2020-08-30 16:50 | REPMRS ---
Patient History The patient states she has not had a clinical breast exam in over a year. Family history of unknown cancer in brother. Digital Woman Screen Mammo: August 30, 2020 - Exam #: [id number] Bilateral CC and MLO view(s) were taken. Technologist: RT Giancarlo Prior study comparison: November 10, 2018, bilateral digital mammo screening bilat, performed at [facility]. April 06, 2016, bilateral digital mammo screening bilat, performed at [facility]. March 11, 2015, bilateral digital mammo screening bilat, performed at [facility]. FINDINGS: There are scattered fibroglandular densities. The Volpara volumetric breast density category is:B. There has been no change in the appearance of the mammogram from the prior studies. There is a mild amount of scattered fibroglandular density which is fairly symmetric. There is no interval development of dominant mass, architectural distortion, or grouped microcalcification suggestive of malignancy. 3-D tomosynthesis shows no additional findings. Assessment: BI-RADS/ACR category 1 mammogram. Negative Mammogram. Recommendation Routine screening mammogram of both breasts in 1 year (for women over age 40). This patient's [facility] Lifetime Breast Cancer Risk is estimated at 7.7 %. This mammogram was interpreted with the aid of an FDA-approved computer-aided dectection system. Electronically Signed By: Nikos Szymanski MD 08/30/20 5161
== END ==
LOC: M WHC 15:51
PROVIDERS: ATTEND Nurse Practitioner Adult Health
DX: Z12.31 Encounter for screening mammogram for malignant neoplasm of breast (principal); R92.2 Inconclusive mammogram

== ENCOUNTER → 2021-08-26 | Outpatient (CLI) | payer BC ==
[~2021-08-26] MED LIST changes: +ERGO500029; -VITA50005
[2021-08-26 09:41] LABS: ALBUMIN 4.2 GM/DL (3.2-5.2); ALT/SGPT 53 U/L (12-78); AMYLASE 35 U/L (25-115); BILIRUBIN,TOTAL 1.1 MG/DL (0.2-1.0); BLOOD UREA NITROGEN 15 MG/DL (7-18); CALCIUM LEVEL 9.4 MG/DL (8.5-10.1); CARBON DIOXIDE LEVEL 32 MEQ/L (21-32); CHLORIDE LEVEL 107 MEQ/L (98-107); CHOLESTEROL LEVEL 246 MG/DL (<200); CREATININE FOR GFR 0.84 MG/DL (0.55-1.30); GLOMERULAR FILTRATION RATE > 60.0 (>51); GLUCOSE, FASTING 97 MG/DL (70-100); HDL CHOLESTEROL 41 MG/DL (>40); LDL CHOLESTEROL 171 MG/DL (<100); LIPASE 140 U/L (73-393); NON-HDL-C 205 MG/DL; POTASSIUM SERUM 3.7 MEQ/L (3.5-5.1); SODIUM LEVEL 143 MEQ/L (136-145); TOTAL PROTEIN 7.6 GM/DL (6.4-8.2); TRIGLYCERIDES LEVEL 171 MG/DL (<150)
== END ==
LOC: M LAB 08:16
PROVIDERS: ATTEND Nurse Practitioner Adult Health
DX: Z00.00 Encounter for general adult medical examination without abnormal findings (principal); E55.9 Vitamin D deficiency, unspecified; R10.13 Epigastric pain; E78.5 Hyperlipidemia, unspecified; M17.12 Unilateral primary osteoarthritis, left knee; M25.562 Pain in left knee; Z83.49 Family history of other endocrine, nutritional and metabolic diseases

== ENCOUNTER → 2021-09-18 | Outpatient (CLI) | payer BC | LOC: M RAD 10:54 | PROVIDERS: ATTEND Nurse Practitioner Adult Health | DX: R10.13 Epigastric pain (principal); R16.0 Hepatomegaly, not elsewhere classified ==

== ENCOUNTER → 2021-10-25 | Outpatient (CLI) | payer BC | LOC: M WHC 08:47 | PROVIDERS: ATTEND Nurse Practitioner Adult Health | DX: Z12.31 Encounter for screening mammogram for malignant neoplasm of breast (principal) ==

== ENCOUNTER → 2021-11-24 | Outpatient (REF) | payer BC | LOC: M LAB REF 23:44 | PROVIDERS: ATTEND Physician Assistant | DX: N39.0 Urinary tract infection, site not specified (principal) ==

== ENCOUNTER → 2022-04-09 | Outpatient (REF) | payer BC | LOC: M SFHCCAPE 13:49 | PROVIDERS: ATTEND Physician Assistant | DX: J22 Unspecified acute lower respiratory infection (principal) ==

== ENCOUNTER → 2022-10-22 | Outpatient (CLI) | payer BC ==
[2022-10-22 08:53] LABS: ALBUMIN 3.9 G/DL (3.2-5.2); ALKALINE PHOSPHATASE 108 U/L (46-116); ALT/SGPT 83 U/L (7.0-40); AST/SGOT 71 U/L (<34); BILIRUBIN,TOTAL 1.2 MG/DL (0.3-1.2); BLOOD UREA NITROGEN 14 MG/DL (9-23); CALCIUM LEVEL 9.4 MG/DL (8.5-10.1); CARBON DIOXIDE LEVEL 27 MMOL/L (20-31); CHLORIDE LEVEL 108 MMOL/L (98-107); CHOLESTEROL LEVEL 209 MG/DL (<200); CHOLESTEROL RISK RATIO 4.91 (<5); CREATININE FOR GFR 0.72 MG/DL (0.55-1.30); GLOMERULAR FILTRATION RATE > 60.0 (>51); GLUCOSE, FASTING 104 MG/DL (60-100); HDL CHOLESTEROL 42.5 MG/DL (>40); LDL CHOLESTEROL 134.9 MG/DL (<100); NON-HDL-C 166.5 MG/DL; POTASSIUM SERUM 3.4 MMOL/L (3.5-5.1); SODIUM LEVEL 143 MMOL/L (136-145); TOTAL PROTEIN 7.1 G/DL (5.7-8.2); TRIGLYCERIDES LEVEL 158 MG/DL (<150)
[2022-10-22 08:56] LABS: TOTAL 25(OH) VITAMIN D 62.5 NG/ML (20.0-100.0)
[2022-10-22 08:57] LABS: THYROID STIMULATING HORMONE 2.274 uIU/ML (0.55-4.78)
== END ==
LOC: M LAB 07:45
PROVIDERS: ATTEND Nurse Practitioner Adult Health
DX: E55.9 Vitamin D deficiency, unspecified (principal); E78.5 Hyperlipidemia, unspecified; I10 Essential (primary) hypertension; Z83.49 Family history of other endocrine, nutritional and metabolic diseases

== ENCOUNTER 2023-05-29 16:45 | Outpatient (RCR) | payer BC | END 2023-06-02 | LOC: M PT 16:45 | PROVIDERS: ATTEND Physician Assistant | DX: M77.32 Calcaneal spur, left foot (principal) ==

== ENCOUNTER 2023-06-19 16:45 | Outpatient (RCR) | payer BC | END 2023-07-03 | LOC: M PT 16:45 | PROVIDERS: ATTEND Physician Assistant | DX: M77.32 Calcaneal spur, left foot (principal) ==

== ENCOUNTER 2024-02-27 11:45 | Day surgery (SDC) | payer BC ==
[~2024-02-27] VITALS: Ht 160 cm; Wt 95.7 kg
[~2024-02-27 11:45] MED LIST changes: +AMLO1TAB24 PO; +AMLO2.5T3 PO; +AMOX875T2 PO; -ERGO500029; +ERGO500029 PO; +MM S100C PO; +NS 1,000 ML IV ONE
[2024-02-27 12:49] VITALS: TEMP 97.7
[2024-02-27] MEDS ORDERED: propofoL 200 MG/20 ML VIAL As Ordered ONE (12:54)
[2024-02-27] MEDS ORDERED: LIDOCAINE 2% 100MG/5ML SDV (FOR ANES.) As Ordered ONE (12:54)
[2024-02-27 13:09] VITALS: BP 158/78; O2SAT 96
== END 2024-02-27 13:20 | disposition home or self-care (01) ==
LOC: M OPP 11:45
PROVIDERS: ATTEND Surgery
DX: Z12.11 Encounter for screening for malignant neoplasm of colon (principal); Z12.12 Encounter for screening for malignant neoplasm of rectum; D12.5 Benign neoplasm of sigmoid colon; K59.00 Constipation, unspecified; I10 Essential (primary) hypertension; Z79.899 Other long term (current) drug therapy; E55.9 Vitamin D deficiency, unspecified; Z88.8 Allergy status to other drugs, medicaments and biological substances; Z90.710 Acquired absence of both cervix and uterus; Z90.79 Acquired absence of other genital organ(s); Z90.722 Acquired absence of ovaries, bilateral

== ENCOUNTER → 2024-04-25 | Outpatient (CLI) | payer BC ==
[~2024-04-25] MED LIST changes: -NS 1,000 ML IV ONE
[2024-04-25 10:09] LABS: HEMATOCRIT 45.1 % (36.0-47.0); MEAN CORPUSCULAR HGB CONC 33.3 g/dl (32.0-36.5); MEAN CORPUSCULAR VOLUME 87.1 fl (80.0-96.0); PLATELET COUNT, AUTOMATED 248 10^3/uL (150-450); RED BLOOD COUNT 5.18 10^6/uL (4.00-5.40); WHITE BLOOD COUNT 6.5 10^3/uL (4.0-10.0)
[2024-04-25 10:45] LABS: FERRITIN 146.4 NG/ML (7.3-270.7); TOTAL 25(OH) VITAMIN D 76.3 NG/ML (20.0-100.0)
[2024-04-25 10:46] LABS: ALBUMIN 3.9 G/DL (3.2-5.2); ALKALINE PHOSPHATASE 88 U/L (35-104); ALT/SGPT 15 U/L (7.0-40); AST/SGOT 14 U/L (<34); BILIRUBIN,TOTAL 1.1 MG/DL (0.3-1.2); BLOOD UREA NITROGEN 11 MG/DL (9-23); CALCIUM LEVEL 9.8 MG/DL (8.3-10.6); CARBON DIOXIDE LEVEL 26 MMOL/L (20-31); CHLORIDE LEVEL 109 MMOL/L (98-107); CHOLESTEROL LEVEL 235 MG/DL (<200); CHOLESTEROL RISK RATIO 5.64 (<5); CREATININE FOR GFR 0.63 MG/DL (0.55-1.30); GLOMERULAR FILTRATION RATE > 60.0 (>45); GLUCOSE, FASTING 93 MG/DL (74-106); HDL CHOLESTEROL 41.6 MG/DL (>40); LDL CHOLESTEROL 165.6 MG/DL (<100); NON-HDL-C 193.4 MG/DL; POTASSIUM SERUM 3.7 MMOL/L (3.5-5.1); SODIUM LEVEL 143 MMOL/L (136-145); THYROID STIMULATING HORMONE 2.442 uIU/ML (0.55-4.78); TOTAL PROTEIN 7.4 G/DL (5.7-8.2); TRIGLYCERIDES LEVEL 139 MG/DL (<150)
[2024-04-25 10:48] LABS: FREE T4 1.11 NG/DL (0.89-1.76)
== END ==
LOC: M LAB 08:14
PROVIDERS: ATTEND Nurse Practitioner Adult Health
DX: E78.5 Hyperlipidemia, unspecified (principal); I10 Essential (primary) hypertension; Z83.49 Family history of other endocrine, nutritional and metabolic diseases; E55.9 Vitamin D deficiency, unspecified

== ENCOUNTER → 2024-05-22 | Outpatient (CLI) | payer BC | LOC: M WHC 16:07 | PROVIDERS: ATTEND Nurse Practitioner Adult Health | DX: Z12.31 Encounter for screening mammogram for malignant neoplasm of breast (principal); R92.323 Mammographic fibroglandular density, bilateral breasts ==